=== PATIENT | male | born 1980 | race Caucasian/White ===

== ENCOUNTER → 2024-08-19 13:40 | Outpatient (REF) | payer OTHER, SELFPAY | LOC: MRI 3T 13:40 | PROVIDERS: ATTENDING PHYSICIAN Orthopaedic Surgery Sports Medicine; FAMILY PHYSICIAN Family Medicine | DX: S43.432D Superior glenoid labrum lesion of left shoulder, subsequent encounter (principal) | CPT/HCPCS: 23350; 73040; 73222 ==